=== PATIENT | male | born 1960 | race Caucasian/White ===

== ENCOUNTER 2025-03-03 08:14 | Emergency (ER) | payer SELFPAY ==
--- NOTE | ~2025-03-03 | XR_ITS ---
Left ankle Technique: AP, oblique, and lateral views were obtained. Clinical History: Post reduction COMPARISON: 03/03/2025 Findings: Cast again in place overlying left ankle. Status post closed reduction, there is. Fractures of the medial malleolus and distal fibular shaft are again present. Probable small fracture the post erior malleolus. Soft tissues are unremarkable. Impression: Markedly improved alignment of trimalleolar fractures following closed reduction. Cast overlies the a nkle. Reviewed, dictated and finalized at location [facility]. Impression: Markedly improved alignment of trimalleolar fractures following closed reductio n. Cast overlies the ankle.
--- NOTE | ~2025-03-03 | XR_ITS ---
Left ankle Technique: AP, oblique, and lateral views were obtained. Clinical History: Postreduction Findings: Status post interval placement of cast over the left ankle. Displaced fracture of the base the medial malleolus again present. Displaced angulated fracture of the distal fibular shaft with mil d comminution again present. Questionable small fracture of the posterior malleolus again present. St able severe lateral subluxation of the talar dome with respect to the distal tibial plafond. Impression: Fractures of the medial malleolus and lateral malleolus, and possible fracture of the posterior malle olus are stable in alignment from prior exam. Stable severe lateral subluxation of the talar dome wit h respect to the distal tibial plafond. Status post cast placement. Orthopedic consultation/follow-up required given significant displacement fractures and derangement o f the ankle joint related to the bimalleolar versus trimalleolar fractures. Reviewed, dictated and finalized at location . Impression: Fractures of the medial malleolus and lateral malleolus, and possible fracture of the posterior malleolus are stable in alignment from prior exam. Stable sandi re lateral subluxation of the talar dome with respect to the distal tibial plaf ond. Status post cast placement. Orthopedic consultation/follow-up required given significant displacement fract ures and derangement of the ankle joint related to the bimalleolar versus trima lleolar fractures.
--- NOTE | ~2025-03-03 | XR_ITS ---
AP and lateral views of the left tibia/fibula Clinical History: Injury Findings: Oblique fracture the distal fibular shaft present. There is a partially imaged fracture of the medial malleolus of the distal tibia.. Joint spaces appear intact. Tibiotalar joint poorly evalua jyoti. Soft tissues are unremarkable. Impression: Oblique fracture of the distal fibular shaft and additional fracture of the medial malleolus. Ankle i s somewhat incompletely included in the [id number]. Dedicated ankle radiographs recommended if not already performed. Reviewed, dictated and finalized at location . Impression: Oblique fracture of the distal fibular shaft and additional fracture of the med ial malleolus. Ankle is somewhat incompletely included in the [id number]. De dicated ankle radiographs recommended if not already performed.
--- NOTE | ~2025-03-03 | XR_ITS ---
Left ankle Technique: AP, oblique, and lateral views were obtained. Clinical History: Injury Findings: There is a transverse fracture through the base the medial malleolus, with lateral displace ment of the distal medial malleolus fracture by approximately 2 cm. There is an oblique, comminuted, mildly displaced and significantly delayed fracture the distal fibular shaft, with apex angulation me dially. There is severe lateral subluxation of the talar dome with respect to the distal tibial plafo nd. Possible small posterior malleolus fracture and lateral views. Soft tissues are otherwise unremar kable. Impression: Significantly displaced medial malleolus fracture, as detailed above. Comminuted, displaced, angulated fracture the distal fibular shaft, as detailed above. Questionable small fracture of the posterior malleolus on lateral view. Severe lateral subluxation of the talar dome with respect to the distal tibial plafond. Reviewed, dictated and finalized at [facility]. Impression: Significantly displaced medial malleolus fracture, as detailed above. Comminuted, displaced, angulated fracture the distal fibular shaft, as detailed above. Questionable small fracture of the posterior malleolus on lateral view. Severe lateral subluxation of the talar dome with respect to the distal tibial plafond.
[2025-03-03 08:11] VITALS: BP 148/86; PULSE 106; RESP 16; TEMP 37; O2SAT 98
[2025-03-03] MEDS: HYDROmorphone HCL INJ (*CRX) 2 MG/ML VIAL 0.5 MG IV PUSH (10:28)
[2025-03-03] MEDS: MIDAZOLAM HCL (*CRX) 2 MG/2 ML VIAL IV PUSH (10:34)
[2025-03-03 10:37] VITALS: PULSE 104; RESP 23; O2SAT 90
[2025-03-03 10:45] VITALS: BP 148/76; PULSE 101; RESP 18; O2SAT 97
--- NOTE | 2025-03-03 10:48 | P.CONOP_ITS ---
Assessment and Plan Assessment and plan (1) Closed left ankle fracture: Code(s): S82.892A - Other fracture of left lower leg, initial encounter for closed fracture Status: Acute Plan 64 yr old male with Left Ankle Fracture dislocation. - plan closed reduction with molded short leg splint. - I recommend surgery within the next 7-10 days. - elevate and Ice. Strict Non-Weight bearing. - follow up with my office Tuesday this week for surgical consultation [phone] (patient to call my office for appointment). History of Present Illness HPI Consult date: 03/03/25 Requesting physician: Shan Crump MD Consult reason: fracture Chief complaint: Left Ankle Fracture Dislocation Narrative: 64 yr old male, retired, with Left Ankle Fracture Dislocation. He was inebriated yesterday, and at around 2am, was attempting to walk up stairs at home. He twisted his Left Ankle, fell asleep, thus the delayed presentation to the ER today. He reports no other injuries. He states he has neuropathy and is NIDDM patient. Attempted reduction in ER, with subsequent loss of reduction after placing he patient into a posterior splint. Review of Systems Review of Systems: All systems reviewed & are unremarkable except as noted in HPI and below Constitutional: Constitutional: Reports as per HPI Meds Home Medications and Allergies Allergies Allergy/AdvReac Type Severity Reaction Status Date / Time No Known Allergies Allergy Verified 03/03/25 10:28 Vital Signs Vital Signs - 24 hr 03/03/25 08:11 Temperature 37.0 C Pulse Rate 106 H Respiratory Rate 16 Blood Pressure 148/86 H Pulse Oximetry 98 Exam Narrative: I evaluated the patient in the Emergency Room. - he was comfortable and alert and respo nsive to questioning. - his Left Leg was in a posterior splint , and it was obviously not well aligned by visual inspection. - good Cap refill Const: General: cooperative, comfortable, no acute distress, well developed and awake Nutritional Appearance: overweight Orientation/consciousness: oriented to person and oriented to place Results Labs Labs: All other labs normal.
--- NOTE | 2025-03-03 10:57 | W.PM.PROC2 ---
Procedure Note - Detailed Date of Procedure 03/03/25 Pre-op Diagnosis Left Ankle Fracture Dislocation Post-op Diagnosis Same Procedure Performed 1. Closed Reduction of Left Ankle Fracture Dislocation 2. Left Leg Short Leg Splint Application Surgeon Gee Palmer MD Anesthesia Other Indications Left Ankle Fracture Dislocation Findings Unstable Left Ankle Fracture Dislocation Description of Procedure I was consulted to see this patient in the [place] ED after an initial closed reduction was performed by the ER Provider. - loss of reduction on post reduction xrays - After my evaluation of the patient in the ER, sedation was performed by the ER Nurse. - I then reduced the Left Ankle Joint with a palpable clunk. - the reduction maneuver was anterior and medial force to the heel. - then posterior splint was applied, while I held the ankle reduced. - I molded the posterior splint by placing appropriate force on the medial tibia, and the calcaneus, pushing the Calcaneus medially and anteriorly while the splint dried and hardened.
--- NOTE | 2025-03-03 11:50 | ED_ITS ---
HPI - General Adult General Chief complaint: Extremity Injury, Lower Stated complaint: ankle injury Time Seen by Provider: 03/03/25 08:18 History of Present Illness HPI narrative: 64-year-old male presenting with ankle fracture. Patient says he got intoxicated last night and rolled his ankle going stairs. It when he woke up in the morning he realizes ankle is deformed and painful. EMS was called he was brought to the hospital. Related Data Allergies Allergy/AdvReac Type Severity Reaction Status Date / Time No Known Allergies Allergy Verified 03/03/25 10:28 Course Vital Signs Vital signs: Vital Signs Temperature 98.6 F 03/03/25 08:11 Pulse Rate 106 H 03/03/25 08:11 Respiratory Rate 16 03/03/25 08:11 Blood Pressure 148/86 H 03/03/25 08:11 Pulse Oximetry 98 03/03/25 08:11 Temperature 98.6 F 03/03/25 08:11 Pulse Rate 101 H 03/03/25 10:45 Respiratory Rate 18 03/03/25 10:45 Blood Pressure 148/76 H 03/03/25 10:45 Pulse Oximetry 97 03/03/25 10:45 Procedures Orthopedic Fracture Reduction Fracture #1: Fracture Reduction date: 03/03/25 Time Out Performed: Yes Side: left Fracture Reduction Location: tibia and fibula Pre-Procedure Neuro Vascular Exam: normal Technique: direct manipulation Post Reduction X-rays Demonstrate: other (unacceptable reduction) Post-reduction neuro exam: intact Post-reduction vascular exam: intact Splint Applied: Yes Patient Tolerated Procedure: no complications Medical Decision Making MDM Narrative Medical decision making narrative: -Course: 64-year-old male presenting with ankle fracture. Attempted reduction was unsuccessful. Dr. Palmer was able to successfully reduce and splint the ankle. Patient will follow-up in his office. Vital Signs Vital Signs: Vital Signs Temperature 98.6 F 03/03/25 08:11 Pulse Rate 106 H 03/03/25 08:11 Respiratory Rate 16 03/03/25 08:11 Blood Pressure 148/86 H 03/03/25 08:11 Pulse Oximetry 98 03/03/25 08:11 Temperature 98.6 F 03/03/25 08:11 Pulse Rate 101 H 03/03/25 10:45 Respiratory Rate 18 03/03/25 10:45 Blood Pressure 148/76 H 03/03/25 10:45 Pulse Oximetry 97 03/03/25 10:45 Discharge Plan Discharge Clinical Impression: Closed left ankle fracture Patient Disposition: Home Condition: Stable Instructions: Antibiotic Form, Ankle Fracture (DC) Additional Instructions: You were seen in the emergency department for an ankle fracture. Please use Motrin Tylenol for pain. Please follow-up with Dr. Palmer on Tuesday. Call his clinic at the number listed on your discharge paperwork. Patient Language: Citizen Of [place] Prescriptions: New ibuprofen 800 mg tablet 800 mg PO TID PRN (Reason: pain) 7 Days Qty: 21 0RF acetaminophen 500 mg tablet 1,000 mg PO TID PRN (Reason: mae) 7 Days Qty: 42 0RF Follow-up/Referrals: PHYSICIAN,NATIONAL SALES TRAINER [Primary Care Provider] - Gee Palmer MD [Physician] - 2 Days
== END 2025-03-03 12:49 | disposition home or self-care (01) ==
PROVIDERS: Emergency Provider Emergency Medicine
DX: S82.832A Other fracture of upper and lower end of left fibula, initial encounter for closed fracture (principal); S82.52XA Displaced fracture of medial malleolus of left tibia, initial encounter for closed fracture; X58.XXXA Exposure to other specified factors, initial encounter
CPT/HCPCS: 27788; 73590; 73610; 96374; 96375; 99285; J1171; J2250